=== PATIENT | male | born 1980 | race Two or more races ===

== ENCOUNTER 2017-12-03 14:57 | Emergency (ER) | payer OTHER, MEDICAID ==
[2017-12-03] MEDS ORDERED: TDAP ADULT 0.5 ML INJ (BOOSTRIX) IM ONE (15:07)
--- NOTE | 2017-12-03 15:19 | EDPHY ---
H & P Stated Complaint: R hand laceration/puncture wound from dog bite today. 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 He sustained a puncture wound to the dorsum of his right hand at the base of the middle finger. He does not recall his last tetanus. Denies any other injuries. ROS: 10 point Review of Systems is negative except as noted in the HPI. PMH: Family History: non-contributory Physical Exam: General: Awake, alert, no acute distress Right hand: There is a puncture wound just proximal to the MCP joint of the 3rd finger on his the dorsum of his right hand. There is no extensor tendon sheath tenderness. He has full flexion extension strength of his MCP, D AP and PIP joints. Sensations intact distally. He has normal perfusion. There is no discharge or erythema. I am able to fully range the finger without any discomfort. Skin: No rash - Personal History Current Tetanus/Diphtheria Vaccine: Unsure Current Tetanus Diphtheria and Acellular Pertussis (TDAP): Unsure - Medical/Surgical History Hx Asthma: No Hx Chronic Respiratory Disease: No Hx Diabetes: No Hx Cardiac Disease: No Hx Renal Disease: No Hx Cirrhosis: No Hx Alcoholism: No Hx HIV/AIDS: No Hx Splenectomy or Spleen Trauma: No Other PMH: Denies - Social History Smoking Status: Never smoked Constitutional: Initial Vital Signs Temperature (C) 36.6 C 12/03/17 15:00 Heart Rate 85 12/03/17 15:00 Respiratory Rate 16 12/03/17 15:00 Blood Pressure 128/91 H 12/03/17 15:00 O2 Sat (%) 95 12/03/17 15:00 O2 Delivery Mode Room Air Allergies/Adverse Reactions: No Known Allergies Allergy (Verified 12/03/17 15:07) Home Medications: Medication Instructions Recorded Amoxicillin/Clavulanate Pot 875 mg PO BID #14 tab 12/03/17 [Augmentin 875 MG TAB (*)] Medical Decision Making ED Course/Re-evaluation: Wound was anesthetized with 1% lidocaine. It was copiously irrigated with an injury catheterization. Wound will be left open to allow for drainage. Will start him on Augmentin given that this is in his dominant hand. Will refer on workman's Comp for follow-up. Departure - Departure Disposition: Home, Routine, Self-Care Clinical Impression: Dog bite Condition: Good Instructions: Animal Bite (ED), Puncture Wound (ED), Diphtheria/Acellular Pertussis/Tetanus Booster Vaccine (By injection) Additional Instructions: Keep the wound clean and dry. Please take your full course of antibiotics. Follow up with workman's Comp doctor in 3-4 days for further evaluation. Return to the emergency department for increasing pain, redness, discharge from the wound, streaking up your hand, fevers, or any other concerns. Referrals: [place] Comp [place] [facility] [place] As per Instructions Prescriptions: Amoxicillin/Clavulanate Pot [Augmentin 875 MG TAB (*)] 875 mg PO BID #14 tab
[2017-12-03 16:07] VITALS: BP 126/79
== END 2017-12-03 16:06 | disposition home or self-care (01) ==
LOC: CED 14:57
DX: S61.451A Open bite of right hand, initial encounter (principal); Z23 Encounter for immunization; W54.0XXA Bitten by dog, initial encounter; Y92.69 Other specified industrial and construction area as the place of occurrence of the external cause; Y99.0 Civilian activity done for income or pay; Y93.89 Activity, other specified

== ENCOUNTER 2018-09-06 16:28 | Emergency (ER) | payer OTHER, MEDICAID ==
[2018-09-06 16:36] VITALS: BP 131/85
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
== END 2018-09-06 17:19 | disposition home or self-care (01) ==
LOC: CED 16:28
DX: S39.012A Strain of muscle, fascia and tendon of lower back, initial encounter (principal); V49.59XA Passenger injured in collision with other motor vehicles in traffic accident, initial encounter; Y92.410 Unspecified street and highway as the place of occurrence of the external cause; Y99.9 Unspecified external cause status; Y93.9 Activity, unspecified
CPT/HCPCS: 72100-PO; 99283-ER